=== PATIENT | female | born 1960 | race Caucasian/White ===

== ENCOUNTER 2019-02-19 10:21 | Emergency (ER) | payer OTHER ==
[2019-02-19] MEDS: CYCLOBENZAPRINE 10 MG TAB PO (11:47)
[2019-02-19] MEDS: DEXAMETHASONE 10 MG/ML 1 ML INJ IM (11:47)
[2019-02-19] MEDS: KETOROLAC 60 MG INJ IM (11:47)
[2019-02-19] MEDS: ACETAMINOPHEN 500 MG TAB PO (11:48)
== END 2019-02-19 13:26 | disposition home or self-care (01) ==
LOC: FTE 10:21
DX: M54.32 Sciatica, left side (principal); E11.9 Type 2 diabetes mellitus without complications
CPT/HCPCS: 96372; 99284-25